=== PATIENT | female | born 2000 | race Caucasian/White ===

== ENCOUNTER 2025-03-30 19:05 | Observation (INO) ==
[2025-03-30] MEDS ORDERED: SODIUM CHLORIDE 0.9% 100 ML IV PRN (19:55)
[2025-03-30] MEDS: SODIUM CHLORIDE 0.9% 1,000 ML IV ONE (20:00)
[2025-03-30] MEDS: ONDANSETRON INJ 2 MG/ML 2 ML VIAL IV STA (20:00)
[2025-03-30] MEDS: MoRPHine SULFATE 4 MG/ML 1 ML CARP\\VIAL IV STA (20:00)
[2025-03-30 20:01] LABS: Hematocrit (blood only) 32.3 % (37.0-47.0); Hemoglobin 11.2 g/dL (12.0-16.0); Immature Granulocytes # (auto) 0.05 K/uL (0.01-0.20); Immature Granulocytes % (auto) 0.5 %; Mean Corpuscular Hemoglobin 29.6 pg (25.0-34.0); Mean Corpuscular Volume 85.2 fL (80.0-100.0); Platelet Count 199 K/uL (130-400); RDW Standard Deviation 39.5 fL (36.4-46.3); Red Blood Count 3.79 M/uL (4.20-5.40); White Blood Count 10.38 K/ul (4.8-10.8)
[2025-03-30 20:08] LABS: Alanine Aminotransferase 10.0 U/L (7-52); Albumin Globulin Ratio 1.3 (0.9-2); Albumin Level 3.8 gm/dl (3.4-5.0); Alkaline Phosphatase 44.0 U/L (34-104); Anion Gap 5.0 (3-11); Bilirubin,Total 0.6 mg/dl (0.2-1.0); Blood Urea Nitrogen 10.0 mg/dl (6-23); Calcium 8.8 mg/dl (8.6-10.3); Carbon Dioxide 24.0 mmol/L (21-32); Chloride 107.0 mmol/L (98-107); Creatinine Clr Calc Pharmacy 145.2 ml/min; Globulin 2.9 gm/dl (2.5-4.0); Glucose 136.0 mg/dl (70-99(Fasting)); Potassium 3.7 mmol/L (3.5-5.1); Sodium 136.0 mmol/L (136-145); Total Protein 6.7 gm/dl (6.0-8.3)
[2025-03-30 20:39] LABS: INR 1.1 (0.9-1.1); Partial Thromboplastin Time 25 Seconds (21-31); Prothrombin Time 11.4 Seconds (9.0-12.0)
--- NOTE | 2025-03-30 20:49 | Emergency Department Note ---
History of Present Illness General Chief complaint: Vaginal Bleeding Stated complaint: MISCARRIAGE, VAGINAL BLEEDING Time Seen by Provider: 03/30/25 19:31 Source: patient Mode of arrival: EMS Limitations: no limitations History of Present Illness Maximum Pain Intensity: 4 Patient is a 24-year-old G1, P0 female who presents with vaginal bleeding in the setting of active miscarriage. Bleeding started as light spotting several days ago. She was seen at outside hospital earlier today and diagnosed with miscarriage. She was noted to be 9 weeks on ultrasound at outside facility without any evidence of cardiac activity. She went home and started to notice cramping increased and had significantly increased vaginal bleeding. She was soaking through multiple pads and passing large clots. She called EMS at that time and was transported for further management. She did receive fentanyl en route for cramping pain. She does report some lightheadedness which is positional. No fainting or near fainting, chest pain, shortness of breath. She is Rh- per outside testing. No underlying dyscrasia. Not on any blood thinners. Home Medications Medication Instructions Recorded Confirmed Type No Known Home Medications 03/30/25 03/30/25 History Allergies Allergy/AdvReac Type Severity Reaction Status Date / Time No Known Allergies Allergy Verified 03/30/25 21:19 Past Med/Surg History Problem List (Updated 03/30/25 @ 22:41 by Guerrero De La Garza MD) Incomplete (Acute) Incomplete amnion in first trimester Social History Smoking Status: Never smoker Preferred Language: Macedonian Feels Safe at Home: Yes Review of Systems Review of systems negative outside of positive findings mentioned in HPI. Physical Exam Vital Signs Vital Signs - 24 hr 03/30/25 19:14 03/30/25 19:16 03/30/25 19:30 Temperature 36.6 C Temperature Source Oral Pulse Rate 118 H 104 H 104 H Respiratory Rate 20 16 Respiratory Effort / Characteristics Non-Labored Spontaneous Respiratory Depth Normal Blood Pressure 132/85 115/94 Blood Pressure Mean 100 102 Pulse Oximetry 99 100 Oxygen Delivery Method Room Air Room Air Sepsis Recent Fever Within 48 Hours No Sepsis New/Unexplained Change in Mental Status N/A Sepsis Action Taken by Nursing No Action Required 03/30/25 20:00 03/30/25 20:15 03/30/25 20:30 Temperature Temperature Source Pulse Rate 85 89 89 Respiratory Rate 20 18 18 Respiratory Effort / Characteristics Respiratory Depth Blood Pressure 118/77 113/74 128/80 Blood Pressure Mean 97 85 94 Pulse Oximetry 94 99 99 Oxygen Delivery Method Room Air Room Air Room Air Sepsis Recent Fever Within 48 Hours Sepsis New/Unexplained Change in Mental Status Sepsis Action Taken by Nursing 03/30/25 20:45 03/30/25 21:00 03/30/25 21:19 Temperature Temperature Source Pulse Rate 106 H 104 H 112 H Respiratory Rate 18 20 16 Respiratory Effort / Characteristics Respiratory Depth Blood Pressure 113/73 144/86 H 124/78 Blood Pressure Mean 87 113 93 Pulse Oximetry 99 100 99 Oxygen Delivery Method Room Air Room Air Room Air Sepsis Recent Fever Within 48 Hours Sepsis New/Unexplained Change in Mental Status Sepsis Action Taken by Nursing 03/30/25 21:30 03/30/25 21:45 Temperature Temperature Source Pulse Rate 99 H 107 H Respiratory Rate 16 16 Respiratory Effort / Characteristics Respiratory Depth Blood Pressure 112/77 104/68 Blood Pressure Mean 89 79 Pulse Oximetry 99 98 Oxygen Delivery Method Room Air Room Air Sepsis Recent Fever Within 48 Hours Sepsis New/Unexplained Change in Mental Status Sepsis Action Taken by Nursing See below Constitutional WD/WN, vitals as above Respiratory normal respiratory effort, lungs clear to auscultation Cardiovascular Rate/Rhythm: + tachycardic Heart Sounds: normal S1 and normal S2 Gastrointestinal (Abdomen) normal bowel sounds, soft, nontender, no hepatosplenomegaly Skin no rashes, warm and dry Course Administered Medications Discontinued Medications Sodium Chloride (Nss) 1,000 mls @ 999 mls/hr IV .Q1H1M ONE Stop: 03/30/25 20:43 Last Infusion: 03/30/25 21:01 Dose: Infused Documented By: Admin: 03/30/25 20:00 Dose: 999 mls/hr Documented By: GILES Morphine Sulfate (Morphine Sulfate 4 Mg/Ml 1 Ml Carp\Vial) 4 mg IV NOW STA Stop: 03/30/25 19:44 Last Admin: 03/30/25 20:00 Dose: 4 mg Documented By: GILES Ondansetron HCl (Ondansetron Inj 2 Mg/Ml 2 Ml Vial) 4 mg IV NOW STA Stop: 03/30/25 19:44 Last Admin: 03/30/25 20:00 Dose: 4 mg Documented By: GILES Medical Decision Making Differential Diagnosis DDx includes but not limited to: Inevitable miscarriage, dysfunctional uterine bleeding, retained products of conception, threatened miscarriage Medical Records Attestation: I reviewed the patient's medical records. Home Medications Current Medication List: was personally reviewed by me Laboratory Data Attestation: I reviewed the patient's lab results. 03/30/25 19:17 03/30/25 19:17 Lab Results 03/30/25 03/30/25 Range/Units 19:17 20:11 WBC 10.38 (4.8-10.8) K/ul RBC 3.79 L (4.20-5.40) M/uL Hgb 11.2 L (12.0-16.0) g/dL Hct 32.3 L (37.0-47.0) % MCV 85.2 (80.0-100.0) fL MCH 29.6 (25.0-34.0) pg MCHC 34.7 (32.0-36.0) g/dL RDW Std Deviation 39.5 (36.4-46.3) fL RDW Coeff of Damaris 12.8 (11.5-14.5) % Plt Count 199 (130-400) K/uL MPV 10.6 (9.4-12.4) fL Immature Gran % (Auto) 0.5 % Neut % (Auto) 87.2 % Lymph % (Auto) 8.3 % Erie % (Auto) 3.4 % Eos % (Auto) 0.3 % Baso % (Auto) 0.3 % Neut # (Auto) 9.06 H (1.40-6.50) K/uL Lymph # (Auto) 0.86 L (1.20-3.40) K/uL Erie # (Auto) 0.35 (0.11-0.59) K/uL Eos # (Auto) 0.03 (0.00-0.50) K/uL Baso # (Auto) 0.03 (0.00-0.20) K/uL Immature Gran # (Auto) 0.05 (0.01-0.20) K/uL PT 11.4 (9.0-12.0) Seconds INR 1.1 (0.9-1.1) APTT 25 (21-31) Seconds PTT Ratio 0.9 Sodium 136 (136-145) mmol/L Potassium 3.7 (3.5-5.1) mmol/L Chloride 107 (98-107) mmol/L Carbon Dioxide 24 (21-32) mmol/L Anion Gap 5 (3-11) BUN 10 (6-23) mg/dl Creatinine 0.73 (0.6-1.2) mg/dl Est Cr Clr Drug Dosing 145.2 ml/min eGFR 116.24 BUN/Creatinine Ratio 13.7 (10-20) Glucose 136 H (70-99(Fasting)) mg/dl Calcium 8.8 (8.6-10.3) mg/dl Total Bilirubin 0.6 (0.2-1.0) mg/dl AST 10 L (13-39) U/L ALT 10 (7-52) U/L Alkaline Phosphatase 44 (34-104) U/L Total Protein 6.7 (6.0-8.3) gm/dl Albumin 3.8 (3.4-5.0) gm/dl Globulin 2.9 (2.5-4.0) gm/dl Albumin/Globulin Ratio 1.3 (0.9-2) Blood Type O Negative Blood Type Recheck O Negative Antibody Screen POSITIVE A Antibody Identification Anti-D due to RhIg Crossmatch See Detail MDM Narrative Patient is a 24-year-old female who presents for evaluation of heavy vaginal bleeding in the setting of inevitable miscarriage. She was diagnosed with inevitable miscarriage today at outside hospital. I did review her visit summary and ultrasound results which showed a single IUP at 9 weeks 0 days with no cardiac activity noted. Bleeding significantly increased after visit at outside hospital and she soaked through multiple pads before arriving here in the ED. Mildly tachycardic however blood pressure stable on arrival. She did still have heavy bleeding on examination and when she got up to go to the bathroom she passed a large amount of blood and clots onto the floor. I spoke with Dr. Nielsen who came down to see the patient bedside and took patient to the OR for definitive management of her inevitable miscarriage. I did cancel her transfusion as I did not wish to delay transfer to the OR. Disposition per OB. Authorized and Performed by: Total critical care time: Approximately 35 CC diagnosis: Due to a high probability of clinically significant, life threatening deterioration, the patient required my highest level of preparedness to intervene emergently and I personally spent this critical care time directly and personally managing the patient. This critical care time included obtaining a history; examining the patient; pulse oximetry; ordering and review of studies; arranging urgent treatment with development of a management plan; evaluation of patient's response to treatment; frequent reassessment; and, discussions with other providers. This critical care time was performed to assess and manage the high probability of imminent, life-threatening deterioration that could result in multi-organ failure. It was exclusive of separately billable procedures and treating other patients and teaching time. Please see MDM section and the rest of the note for further information on patient assessment and treatment. Impression & Plan Incomplete Discharge Plan Visit Data Chief Complaint: Vaginal Bleeding Stated Complaint: MISCARRIAGE, VAGINAL BLEEDING ED Provider: Guerrero De La Garza Discharge Problem: Incomplete Patient Disposition: Admitted As Inpatient Condition: Good Discharge Instructions Interventions: ED Discharge Assessment Last Done: 03/30/25 21:46
--- NOTE | 2025-03-30 21:25 | History & Physical Report ---
Date of Service March 30, 2025 Assessment & Plan (1) Incomplete amnion in first trimester: Plan suction evacuation uterine contents History of Present Illness Chief Complaint: Intra uterine approximately 12 weeks gestation Heavy vaginal bleeding with clotting Primary Care Provider: Va Fonseca 24-year-old 1 para 0 been well dated with a first trimester ultrasound. Her due date 10/10/2025. Patient also has factor II clotting deficiency. She does not need any type of replacement having minor surgical procedures. She was seen earlier in the day at [facility]. Transvaginal ultrasound was done. Showed a intrauterine demise with a gestational age of about 8 to 9 weeks gestation. She went to the ER because she had some small amount of bleeding but a large amount of cramping. She returned to the ER tonight with heavy vaginal bleeding passing large clots. Presently being scheduled for an D&E past medical history she has no known drug allergies. Surgeries she has a history of colonoscopy. Medical disease she has hypothyroidism which has been present for approximately 2 years she is on 75 mcg p.o. daily for replacement Allergies Allergy/AdvReac Type Severity Reaction Status Date / Time No Known Allergies Allergy Verified 03/30/25 21:19 Home Medications Medication Instructions Recorded Confirmed Type No Known Home Medications 03/30/25 03/30/25 History Past Med/Surg History Problem List (Updated 03/30/25 @ 21:28 by Wade Nielsen MD) Incomplete amnion in first trimester Social History Smoking Status: Never smoker Preferred Language: Haitian Feels Safe at Home: Yes Physical Exam Physical Exam: Patient appeared to be well-developed well-nourished 24-year-old white female alert oriented x 3 cooperative no acute distress. Appears her stated age her stated age. Heart had regular rhythm S1 and S2 were normal. Lungs are clear to auscultation percussion. Trachea was midline thyroid is not enlarged there is no adenopathy appreciated. Abdomen soft and nontender. Pelvic exam revealed the speculum filling with clotted blood. Bimanual exam revealed the external cervical os to be open and a small fetus in the vaginal canal. There were no adnexal masses. Results & Data Results & Data Vital Signs (Past 12 Hours) Vital Signs Temp Pulse Resp BP Pulse Ox O2 Del Method 03/30/25 19:16 104 H 03/30/25 19:14 36.6 C 118 H 20 132/85 99 Room Air Diagnostic Findings Incomplete along hello
[2025-03-30] MEDS ORDERED: ONDANSETRON INJ 2 MG/ML 2 ML VIAL ONE (22:07)
[2025-03-30] MEDS ORDERED: ROCURONIUM BROMIDE 10 MG/ML 5 ML VIAL IV ONE (22:07)
[2025-03-30] MEDS ORDERED: LIDOCAINE 2% 2 ML VIAL/AMP(20MG/ML) INFIL ONE (22:07)
[2025-03-30] MEDS ORDERED: SUCCINYLCHOLINE CHLORIDE 20 MG/ML 10 ML VIAL IV ONE (22:07)
[2025-03-30] MEDS ORDERED: PROPOFOL IV EMULSION 10 MG/ML 20 ML VIAL IV ONE (22:07)
[2025-03-30] MEDS ORDERED: DEXAMETHASONE SOD INJ 4 MG/ML VIAL ONE (22:07)
[2025-03-30] MEDS ORDERED: MIDAZOLAM HCL 1 MG/ML 2ML VIAL ONE (22:11)
--- NOTE | 2025-03-30 22:18 | Anesthesiology Consultation ---
Date of Service March 30, 2025 Assessment & Plan Chart Review Chart Review: Acceptable Risk for Surgery and Patient NOT seen in Pre Admission Testing Consults Requested none ASA ASA2E Proposed Anesthesia Anesthesia Type: General Risk / Benefits Reviewed With: PT / POA / Parent / Guardian, Accepts Plan and Informed Consent Obtained History Surgery Operation Date: 03/30/25 22:30 Proposed Procedures p Dilation and Evacuation - Wade Nielsen MD Height/Weight Height: 5 ft 7 in Weight: 104.5 kg Allergies Allergy/AdvReac Type Severity Reaction Status Date / Time No Known Allergies Allergy Verified 03/30/25 21:19 Medications Home Medications Medication Instructions Recorded Confirmed Last Taken No Known Home Medications 03/30/25 03/30/25 Unknown NPO Date Last Intake of Fluids: 03/30/25 Time Last Intake of Fluids: 16:00 Date Last Intake of Solids: 03/30/25 Time Last Intake of Solids: 11:00 Exercise / Class Metabolic Activity 1 > 8 Run/Swim/Ski/Tennis Past Anesthesia History No Hx of Anesthesia Complications and No Family Hx of Anesthesia Complications History of PONV No Hx of PONV Social History Smoking Status: Never smoker Review of Systems ROS Unobtainable: All systems reviewed & are unremarkable except as noted in HPI & below Physical Exam Vital Signs Last Vital Signs Temp 36.6 C 03/30/25 19:14 Pulse 107 H 03/30/25 21:45 Resp 16 03/30/25 21:45 BP 104/68 03/30/25 21:45 Pulse Ox 98 03/30/25 21:45 O2 Del Method Room Air 03/30/25 21:45 ENMT Mouth: no TMJ abnormality Thyromental Distance: > or= 3.5 Finger Breadths Mallampati Class: II Neck normal visual inspection and trachea midline; neck extension not limited Respiratory normal respiratory effort Auscultation: lungs clear to auscultation bilaterally Cardiovascular Rate/Rhythm: regular rate and regular rhythm Heart Sounds: no murmur Musculoskeletal Spine: normal cervical ROM Extremities: full ROM of extremities Neurologic moves all extremities Psychiatric Orientation: alert and oriented x 3 Testing Laboratory Results 03/30/25 19:17 03/30/25 19:17 PT 11.4 Seconds (9.0-12.0) 03/30/25 19:17 INR 1.1 (0.9-1.1) 03/30/25 19:17 APTT 25 Seconds (21-31) 03/30/25 19:17 Blood Type O Negative 03/30/25 19:17 Antibody Screen POSITIVE A 03/30/25 19:17
[2025-03-30] MEDS ORDERED: SUGAMMADEX SODIUM 200 MG/2 ML VIAL IV ONE (22:39)
[2025-03-30] MEDS ORDERED: KETOROLAC 30 MG/ML VIAL IV PRN (22:53)
[2025-03-30] MEDS ORDERED: IBUPROFEN 600 MG TAB PO PRN (22:53)
[2025-03-30] MEDS ORDERED: HYDROCODONE/ACETAMOPHEN 5/325MG TAB PO PRN (22:53)
--- NOTE | 2025-03-30 23:00 | Operative Report ---
Post Operative Report Pre & Post Diagnosis Preop incomplete heavy vaginal bleeding Postop same pathology pending Operation Date: 03/30/25 22:30 <No data on this case meets the specified criteria> I identified the patient and participated in the time-out.: Yes Procedure Suction and sharp evacuation of uterine contents Operation Date: 03/30/25 22:30 <No data on this case meets the specified criteria> Surgeon Wade Nielsen MD Deputy Commissioner None Estimated Blood Loss 100 Findings Consistent with Post-Op Diagnosis Products of conception and vaginal vault. Specimens Uterine contents Drains None Complications None Indications Heavy vaginal bleeding Description of Procedure Patient brought to the OR table correctly identified by armband and conversation. Patient was positioned on the OR table. Perineum vagina were painted with Betadine paint draped usual sterile fashion. Careful pelvic exam under anesthesia revealed a mid positional uterus products of conception were in the vagina. External cervical os was open to large amount of clots in the vagina. Catheter was used to empty the bladder. Timeout was called patient was identified along with the procedure. Weighted speculum placed in the posterior vagina. The anterior lip cervix was grasped with a ring forceps. #10 suction curette was used to suction out a lot of the vaginal contents clotted blood enlarged with products of conception. #10 suction curette was placed in uterine cavity suction was applied a large amount of placental tissue could be seen coming through the clear curette. Following this the curette was used to gently curette out the endometrial cavity. This was productive of another small amount of tissue. Suction curette was reapplied to remain all clots and debris left in uterine cavity. Following this with IV Pitocin running and IM Methergine. Uterus contracted well hemostasis was good. I attest to the content of the Intraoperative Record and any orders documented therein. Any exceptions are noted below.
[2025-03-30] MEDS ORDERED: ATROPINE SULFATE 0.1 MG/ML 10ML SYR IV PRN (23:10)
[2025-03-30] MEDS ORDERED: ONDANSETRON INJ 2 MG/ML 2 ML VIAL IV PRN (23:10)
[2025-03-30] MEDS ORDERED: PROMETHAZINE HCL 6.25 MG in SODIUM CHLORIDE 0.9% 50 ML IV PRN (23:10)
--- NOTE | 2025-03-30 23:10 | Anesthesiology Progress Note ---
Date of Service March 30, 2025 Anesthesia Post Procedure Vital Signs Vital Signs: Temp Pulse Resp BP Pulse Ox O2 Del Method 03/30/25 21:45 107 H 16 104/68 98 Room Air 03/30/25 21:30 99 H 16 112/77 99 Room Air 03/30/25 21:19 112 H 16 124/78 99 Room Air 03/30/25 21:00 104 H 20 144/86 H 100 Room Air 03/30/25 20:45 106 H 18 113/73 99 Room Air 03/30/25 20:30 89 18 128/80 99 Room Air 03/30/25 20:15 89 18 113/74 99 Room Air 03/30/25 20:00 85 20 118/77 94 Room Air 03/30/25 19:30 104 H 16 115/94 100 Room Air 03/30/25 19:16 104 H 03/30/25 19:14 36.6 C 118 H 20 132/85 99 Room Air Transfer of Care Handoff Completed per policy Notes Mental Status: alert / awake / arousable Patient Amnestic to Procedure: Yes Nausea / Vomiting: adequately controlled Pain: adequately controlled Airway Patency, RR, SpO2: stable & adequate BP & HR: stable & adequate Hydration State: stable & adequate Anesthetic Complications: no major complications apparent
[2025-03-31] MEDS: SODIUM CHLORIDE 0.9% 500 ML IV SCH (00:40)
[2025-03-31 01:21] VITALS: RESP 18
[2025-03-31 04:48] VITALS: O2SAT 97
[2025-03-31] MEDS: LEVOTHYROXINE SODIUM 75 MCG TABLET PO SCH (06:14)
[2025-03-31 06:21] LABS: Hematocrit (blood only) 28.6 % (37.0-47.0); Hemoglobin 9.8 g/dL (12.0-16.0)
[2025-03-31] MEDS: METHYLERGONOVINE MALEATE 0.2 MG/ML AMP ONE (07:28)
[2025-03-31] MEDS: SODIUM CHLORIDE 0.9% 1,000 ML IV SCH (07:28)
[2025-03-31 08:44] VITALS: BP 112/69; PULSE 88; TEMP 98.2
--- NOTE | 2025-03-31 10:25 | Obstetrical Progress Note ---
Date of Service March 31, 2025 Assessment & Plan Admission and Anticipated Discharge Date Admission Date: March 30, 2025 Subjective abdomen soft and non tender ambulating well vaginal bleeding scant hgb 9.8 cramping minimal Results & Data Vital Signs (Past 12 Hours) Vital Signs Temp Pulse Pulse Resp BP BP Pulse Ox 03/31/25 07:55 36.8 C 88 18 112/69 03/31/25 04:47 76 97 03/31/25 03:36 36.9 C 80 18 99/67 L 95 03/31/25 02:23 37 C 88 18 107/71 97 03/31/25 01:20 36.7 C 99 H 18 111/70 98 03/31/25 00:20 36.6 C 88 16 120/75 99 03/30/25 23:50 36.6 C 102 H 16 114/87 98 03/30/25 23:36 36.8 C 87 18 105/73 96 03/30/25 23:26 37 C 88 25 H 118/74 95 03/30/25 23:16 36.7 C 95 H 23 110/70 97 03/30/25 23:06 36.1 C L 92 H 27 H 118/72 96 O2 Del Method 03/31/25 07:55 Room Air 03/31/25 04:47 Room Air 03/31/25 03:36 Room Air 03/31/25 02:23 Room Air 03/31/25 01:20 Room Air 03/31/25 00:20 Room Air 03/30/25 23:50 Room Air 03/30/25 23:36 Room Air 03/30/25 23:26 Room Air 03/30/25 23:16 Room Air 03/30/25 23:06 Room Air
--- NOTE | 2025-03-31 15:31 | Electrocardiogram Report ---
Test Reason : Blood Pressure : */* mmHG Vent. Rate : 95 BPM Atrial Rate : 95 BPM P-R Int : 146 ms QRS Dur : 72 ms QT Int : 354 ms P-R-T Axes : 32 80 40 degrees QTcB Int : 444 ms Normal sinus rhythm with sinus arrhythmia Nonspecific T wave abnormality Abnormal ECG No previous ECGs available Confirmed by Marcin Mojica ([id number]) on 03/31/2025 3:30:43 PM Referred By: REFERRED SELF Confirmed By: Marcin Mojica
--- NOTE | 2025-04-10 08:18 | Discharge Summary ---
Date of Service April 10, 2025 Admission HPI Per Admitting Provider 24-year-old 1 para 0 been well dated with a first trimester ultrasound. Her due date 10/10/2025. Patient also has factor II clotting deficiency. She does not need any type of replacement having minor surgical procedures. She was seen earlier in the day at [facility]. Transvaginal ultrasound was done. Showed a intrauterine demise with a gestational age of about 8 to 9 weeks gestation. She went to the ER because she had some small amount of bleeding but a large amount of cramping. She returned to the ER tonight with heavy vaginal bleeding passing large clots. Presently being scheduled for an D&E past medical history she has no known drug allergies. Surgeries she has a history of colonoscopy. Medical disease she has hypothyroidism which has been present for approximately 2 years she is on 75 mcg p.o. daily for replacement Admission Exam (Per Admitting) Constitutional Patient appeared well-developed well-nourished 24-year-old white female alert oriented x 3 cooperative in moderate amount of distress due to heavy vaginal bleeding heart had a regular rhythm S1 and S2 were normal. Lungs are clear to auscultation percussion. Abdomen soft and nontender. Speculum exam revealed vagina filled with clotted blood. Large amount of clots and bleeding present. Pelvic exam revealed the external cervical os to be open. Products of conception in the lower cervical canal. No calf tenderness. Discharge Data Procedures Performed Operation Date: 03/30/25 22:30 Actual Procedures p Dilation and Evacuation - Wade Nielsen MD Hospital Course (1) Incomplete : Dilatation cervix suction evacuation uterine contents Discharge Instructions Patient was admitted through the ER with heavy vaginal bleeding. Diagnosis of incomplete AB. Patient had been seen earlier in the day at [facility]. She had had an ultrasound which showed an intrauterine demise at about 12 weeks gestation. At this time patient decided to not have surgical treatment in the past products of conception on her own. However she began to run into heavy vaginal bleeding with clotting was seen in the ER. Evaluated the patient in the emergency room she had an incomplete AB associated with heavy vaginal bleeding and clotting. She was promptly taken to the OR where a suction and sharp evacuation of uterine contents was performed. She was given prophylactic antibiotics in the form of Mefoxin 2 g at this time. She was kept overnight for observation. During the night she did well. Vaginal bleeding was minimal. She was able to tolerate a regular diet and ambulate. Her hemoglobin had dropped to 9.8. Her prior hemoglobin ER was 11.2. She was given usual post D&E instructions told to call if heavy bleeding resumed or she had any particular problems.
--- NOTE | 2025-04-10 08:21 | Operative Report ---
Post Operative Report Pre & Post Diagnosis Operation Date: 03/30/25 22:30 <No data on this case meets the specified criteria> I identified the patient and participated in the time-out.: Yes Procedure Operation Date: 03/30/25 22:30 <No data on this case meets the specified criteria> Surgeon Wade Nielsen MD Engineer/Conductor none Estimated Blood Loss 100 Findings Consistent with Post-Op Diagnosis Large amount of vaginal clots. Products of conception in the vaginal canal Specimens Uterine contents Drains None Description of Procedure Patient brought to the OR table correct identified by armband and conversation. Patient was placed in candycane stirrups. Perineum and vagina were painted with Betadine solution. Catheter was used to empty the bladder. Pelvic exam revealed a large amount of nonclotted blood in the canal. Weighted speculum was placed in the posterior vagina. Anterior lip of the cervix was grasped with an Allis. Products of conception were removed with a ring forceps. Cervix was already dilated. #10 suction or curette was placed in the uterine cavity. Suction was applied. Placental contents could be seen coming through the suction curette. Uterine cavity was recuretted with a sharp curette. Suction was reapplied to remove all remaining fragments and debris. Following this in struments were removed. Bimanual exam with massage contracted uterus nicely. Hemostasis was good. Patient was given Mefoxin 2 g prophylactic antibiotics. I attest to the content of the Intraoperative Record and any orders documented therein. Any exceptions are noted below.
== END 2025-03-31 11:45 | disposition home or self-care (01) | DRG 832 ==
LOC: ED 19:05 → OR 21:46 → 4E1 23:33 → INTOOBSV 23:33
DX: O99.281 Endocrine, nutritional and metabolic diseases complicating pregnancy, first trimester; Z3A.09 9 weeks gestation of pregnancy; R00.0 Tachycardia, unspecified; E03.9 Hypothyroidism, unspecified; O99.111 Other diseases of the blood and blood-forming organs and certain disorders involving the immune mechanism complicating pregnancy, first trimester; D68.2 Hereditary deficiency of other clotting factors; O03.1 Delayed or excessive hemorrhage following incomplete spontaneous abortion